=== PATIENT | male | born 1970 | race Caucasian/White ===

== ENCOUNTER → 2016-02-22 | Outpatient (CLI) | payer BC | LOC: BHSO 09:18 | DX: F33.1 Major depressive disorder, recurrent, moderate (principal) ==

== ENCOUNTER → 2016-11-01 | Outpatient (CLI) | payer BC | LOC: BHSO 11:07 | DX: F41.1 Generalized anxiety disorder (principal) ==

== ENCOUNTER → 2017-02-15 | Outpatient (CLI) | payer BC | LOC: BHSO 15:18 | DX: F41.1 Generalized anxiety disorder (principal) | CPT/HCPCS: G0463 ==

== ENCOUNTER → 2017-04-13 | Outpatient (CLI) | payer BC | LOC: BHSO 08:51 | DX: F33.42 Major depressive disorder, recurrent, in full remission (principal) | CPT/HCPCS: G0463 ==

== ENCOUNTER → 2017-05-03 | Outpatient (CLI) | payer BC | LOC: COL.VAS 09:03 | DX: I73.9 Peripheral vascular disease, unspecified (principal) ==

== ENCOUNTER → 2017-07-13 | Outpatient (CLI) | payer BC | LOC: BHSO 11:38 | DX: F33.42 Major depressive disorder, recurrent, in full remission (principal) | CPT/HCPCS: G0463 ==

== ENCOUNTER → 2017-11-10 | Outpatient (CLI) | payer BC | LOC: BHSO 08:27 | DX: F33.42 Major depressive disorder, recurrent, in full remission (principal) | CPT/HCPCS: G0463 ==

== ENCOUNTER → 2018-05-18 | Outpatient (CLI) | payer BC | LOC: BHSO 08:16 | DX: F33.42 Major depressive disorder, recurrent, in full remission (principal) | CPT/HCPCS: G0463 ==

== ENCOUNTER → 2018-11-20 | Outpatient (CLI) | payer BC | LOC: BHSO 08:21 | DX: F33.42 Major depressive disorder, recurrent, in full remission (principal) | CPT/HCPCS: G0463 ==

== ENCOUNTER → 2019-01-24 | Outpatient (CLI) | payer BC | LOC: BHSO 08:03 | DX: F33.42 Major depressive disorder, recurrent, in full remission (principal) | CPT/HCPCS: G0463 ==

== ENCOUNTER → 2019-06-28 | Outpatient (CLI) | payer BC | LOC: COL.VAS 13:22 | DX: I82.812 Embolism and thrombosis of superficial veins of left lower extremity (principal) ==

== ENCOUNTER → 2019-07-16 | Outpatient (CLI) | payer BC | LOC: BHSO 11:18 | DX: F31.4 Bipolar disorder, current episode depressed, severe, without psychotic features (principal) | CPT/HCPCS: G0463 ==

== ENCOUNTER → 2019-09-12 | Outpatient (CLI) | payer BC | LOC: BHSO 11:31 | DX: F33.1 Major depressive disorder, recurrent, moderate (principal) | CPT/HCPCS: G0463 ==

== ENCOUNTER → 2019-12-12 | Outpatient (CLI) | payer BC | LOC: BHSO 10:58 | DX: F33.41 Major depressive disorder, recurrent, in partial remission (principal) | CPT/HCPCS: G0463 ==

== ENCOUNTER → 2020-06-16 | Outpatient (CLI) | payer BC ==
[~2020-06-16] MED LIST: ATIVAN 0.50.5 MG/TAB PO; EFFEXOR XR75 MG/CAP PO; TOPROL XL 25MG25 MG PO; TRICOR 48MG48 MG PO; WELLBUTRIN XL150 MG PO; ZOCOR 20MG20 MG PO
== END ==
LOC: COL.RAD 11:00
DX: R91.8 Other nonspecific abnormal finding of lung field (principal); Z90.49 Acquired absence of other specified parts of digestive tract
CPT/HCPCS: Q9967

== ENCOUNTER → 2020-07-03 | Outpatient (CLI) | payer BC | LOC: COL.RAD 06-24 10:00 | DX: R91.8 Other nonspecific abnormal finding of lung field (principal) | CPT/HCPCS: Q9967 ==

== ENCOUNTER → 2020-09-18 | Outpatient (CLI) | payer BC ==
--- NOTE | 2020-09-14 13:43 | NUR ---
lmom with instructions and call back number
[~2020-09-18] VITALS: Ht 188 cm; Wt 99.4 kg
[2020-09-18 12:16] VITALS: BP 120/77; PULSE 64
[2020-09-18 13:13] VITALS: BP 120/68; PULSE 59
== END ==
LOC: COL.RAD 11:53
DX: M51.36 Other intervertebral disc degeneration, lumbar region (principal)
CPT/HCPCS: J3301

== ENCOUNTER → 2021-02-04 | Outpatient (CLI) | payer BC ==
[~2021-02-04] VITALS: Ht 188 cm; Wt 99.8 kg
[2021-02-04 12:52] VITALS: BP 121/68; PULSE 51; TEMP 98.4
[2021-02-04 13:40] VITALS: BP 150/75; PULSE 61
== END ==
LOC: COL.RAD 01-18 06:30
DX: M51.36 Other intervertebral disc degeneration, lumbar region (principal)
CPT/HCPCS: J3301

== ENCOUNTER → 2021-09-07 | Outpatient (CLI) | payer BC ==
[~2021-09-07] VITALS: Ht 188 cm; Wt 97.5 kg
[~2021-09-07] MED LIST changes: +FLONASEALLERGY NS; +ZYRTEC 10MG10 MG PO
[2021-09-07 13:15] VITALS: BP 122/72; PULSE 65; TEMP 98
[2021-09-07 15:05] VITALS: BP 124/73; PULSE 56
== END ==
LOC: COL.RAD 13:07
DX: M79.18 Myalgia, other site (principal)
CPT/HCPCS: J3301

== ENCOUNTER → 2023-02-09 | Outpatient (CLI) | payer BC | LOC: COL.RAD 07:53 | DX: M25.551 Pain in right hip (principal) | CPT/HCPCS: J0665; J3301 ==

== ENCOUNTER → 2023-03-02 | Outpatient (CLI) | payer BC | LOC: COL.CARD 07:51 | DX: R00.2 Palpitations (principal) ==